=== PATIENT | female | born 1985 | race Caucasian/White ===

== ENCOUNTER 2022-08-16 10:52 | Emergency (ER) | payer BC, OTHER ==
[2022-08-16 11:05] VITALS: BMI 30.9
[2022-08-16] MEDS ORDERED: LACTATED RINGERS SOLUTION 1000 ML INFUS.BAG IV ONE (11:35)
[2022-08-16] MEDS ORDERED: METOCLOPRAMIDE HCL INJECTION 10 MG/2 ML VIAL IVPUSH ONE (11:35)
[2022-08-16] MEDS ORDERED: ACETAMINOPHEN 1000 MG/100 ML BAG IVPB ONE ×2 (11:54→11:58)
[2022-08-16] MEDS ORDERED: METOCLOPRAMIDE HCL INJECTION 10 MG/2 ML VIAL IVPB ONE (11:58)
[2022-08-16] MEDS ORDERED: SODIUM CHLORIDE 0.9% 1000 ML INFUS.BAG IV ONE (11:58)
[2022-08-16] MEDS ORDERED: METOCLOPRAMIDE HCL INJECTION 10 MG/2 ML VIAL ONE (12:36)
[2022-08-16] MEDS ORDERED: ACETAMINOPHEN INJECTION 100 ML IVPB ONE (12:37)
[2022-08-16 13:49] LABS: BASO % 1.2 % (0-2.0); EOS % 0.3 % (0-4.5); HEMATOCRIT 43.8 % (32.4-45.2); HEMOGLOBIN 14.2 GM/dL (10.7-15.3); LYMPH % 58.1 % (8-40); MCH 28.7 pg (25.7-33.7); MCHC 32.4 g/dl (32.0-36.0); MEAN CELL VOLUME 88.6 fl (80-96); MEAN PLT VOLUME 9.4 fl (7.5-11.1); MONO % 3.2 % (3.8-10.2); NEUT % 37.2 % (42.8-82.8); PLATELET COUNT 334 10^3/uL (134-434); RBC 4.95 M/mm3 (3.60-5.2); RDW 14.2 % (11.6-15.6); WHITE BLOOD COUNT 5.2 K/mm3 (4.0-10.0)
[2022-08-16 14:06] LABS: POTASSIUM 5.8 mmol/L (3.5-5.1)
[2022-08-16 14:10] LABS: ALBUMIN 4.2 g/dl (3.4-5.0); BLOOD UREA NITROGEN 8.3 mg/dL (7-18); CALCIUM 9.8 mg/dL (8.5-10.1); MAGNESIUM 2.1 mg/dL (1.8-2.4)
[2022-08-16 14:12] LABS: CREATININE 0.8 mg/dL (0.55-1.3)
[2022-08-16 14:14] LABS: BILIRUBIN,TOTAL 0.6 mg/dL (0.2-1); TOT PROT 8.4 g/dl (6.4-8.2)
[2022-08-16] MEDS ORDERED: DEXAMETHASONE SOD PHOSPHATE 4 MG/1 ML VIAL IVPUSH ONE (14:47)
[2022-08-16] MEDS ORDERED: DEXAMETHASONE SOD PHOSPHATE 10 MG/1 ML VIAL ONE (14:51)
[2022-08-16] MEDS ORDERED: DEXAMETHASONE SOD PHOSPHATE 4 MG/1 ML VIAL ONE (15:00)
[2022-08-16 15:04] VITALS: BP 106/77; PULSE 70; RESP 16; TEMP 97.6
== END 2022-08-16 15:44 | disposition home or self-care (01) ==
LOC: JER 10:52
PROC: 3E033NZ Introduction of Analgesics, Hypnotics, Sedatives into Peripheral Vein, Percutaneous Approach (ICD-10-PCS; principal; 2022-08-16)
PROC: 3E033GC Introduction of Other Therapeutic Substance into Peripheral Vein, Percutaneous Approach (ICD-10-PCS; 2022-08-16)
PROC: 3E033GC Introduction of Other Therapeutic Substance into Peripheral Vein, Percutaneous Approach (ICD-10-PCS; 2022-08-16)
DX: R51.9 Headache, unspecified (principal); R11.2 Nausea with vomiting, unspecified; R68.84 Jaw pain; M25.512 Pain in left shoulder; Z20.822 Contact with and (suspected) exposure to COVID-19
CPT/HCPCS: 0241U-QW; 36415; 70450-TC; 80053; 83690; 83735; 84703; 85025; 93005; 93010; 99285-25

== ENCOUNTER 2023-01-09 06:59 | Emergency (ER) | payer BC ==
[2023-01-09 07:09] VITALS: BP 115/82; PULSE 93; RESP 16; TEMP 98.9; BMI 29.6
[2023-01-09] MEDS ORDERED: diphenhydrAMINE HCL 25 MG CAPSULE (FP) PO ONE ×2 (07:27→07:43)
[2023-01-09] MEDS ORDERED: predniSONE 20 MG TABLET (UD) PO ONE (07:27)
[2023-01-09] MEDS ORDERED: predniSONE 20 MG TABLET (UD) ONE (07:43)
== END 2023-01-09 07:53 | disposition home or self-care (01) ==
LOC: FER 06:59
DX: R21 Rash and other nonspecific skin eruption (principal); L29.9 Pruritus, unspecified; L50.9 Urticaria, unspecified
CPT/HCPCS: 99283-25

== ENCOUNTER 2024-03-11 12:55 | Emergency (ER) | payer BC ==
[2024-03-11 13:13] VITALS: BP 119/81; PULSE 98; RESP 18; TEMP 98.6; BMI 28.3
[2024-03-11] MEDS ORDERED: ACETAMINOPHEN 500 MG TABLET (FP) ONE (14:38)
[2024-03-11] MEDS: ACETAMINOPHEN 500 MG TABLET (FP) PO ONE (14:42)
== END 2024-03-11 18:07 | disposition home or self-care (01) ==
LOC: JERFT 12:55
DX: M79.671 Pain in right foot (principal); M79.672 Pain in left foot
CPT/HCPCS: 73630-TC-LT; 73630-TC-RT-FY; 82962; 99284-25